=== PATIENT | female | born 1985 | race Asian ===

== ENCOUNTER 2023-10-21 08:17 | Outpatient (CLI) | payer BC, SELFPAY | END 2023-10-21 08:18 | disposition home or self-care (01) | PROVIDERS: Visit Provider Registered Nurse | DX: N92.0 Excessive and frequent menstruation with regular cycle (principal) | CPT/HCPCS: 82728; 84443 ==

== ENCOUNTER 2023-10-27 14:40 | Outpatient (CLI) | payer BC, SELFPAY ==
--- NOTE | 2023-10-27 14:45 | CRLHL7_ITS ---
For Patients: As a result of the Century Cures Act, medical imaging exams and procedure reports are released immediately into your electronic medical record. You may view this report before your referring provider. If you have questions, please contact your health care provider. INDICATION: Menorrhagia COMPARISON: none TECHNIQUE: 2D salcido scale and color Doppler images were acquired of the pelvis using a transabdominal and transvaginal approach. FINDINGS: Sonographic images demonstrate a normal size and smooth outer contour of the uterus. Uterus measures 8.0 cm in length by 4.8 cm in AP diameter by 5.5 cm in transverse dimension. The myometrium has a normal uniform echotexture. The endometrial lining measures 15 mm in composite thickness. The right ovary measures 3.3 x 1.9 x 2.7 cm in size and the left ovary measures 2.6 x 1.5 x 1.8 cm. The ovaries demonstrate normal arterial and venous blood flow on color Doppler analysis. There are no suspicious fluid collections within the cul-de-sac. Simple right ovarian cyst is present measuring 2.2 x 1.3 x 1.9 cm with partial collapse. Trace physiologic free fluid. IMPRESSION: Endometrial thickness 15 millimeters. No endometrial fluid or uterine fibroid. Dictated by Ronnie Vasquez MD @ 10/28/2023 11:44:12 AM (Electronically Signed)
== END 2023-10-27 14:41 | disposition home or self-care (01) ==
LOC: US 14:40
PROVIDERS: Visit Provider Registered Nurse
DX: N92.0 Excessive and frequent menstruation with regular cycle (principal); R93.89 Abnormal findings on diagnostic imaging of other specified body structures
CPT/HCPCS: 76830; 76856

== ENCOUNTER 2023-11-23 10:05 | Outpatient (CLI) | payer BC, SELFPAY | END 2023-11-23 10:06 | disposition home or self-care (01) | LOC: NFLDREF 11-27 02:15 | PROVIDERS: PCP Family Medicine; Referring Provider Family Medicine; Visit Provider Registered Nurse | DX: E61.1 Iron deficiency (principal) | CPT/HCPCS: 82728 ==

== ENCOUNTER 2024-05-29 09:29 | Outpatient (CLI) | payer OTHER, SELFPAY | END 2024-05-29 09:30 | disposition home or self-care (01) | LOC: NFLDREF 06-01 06:12 | PROVIDERS: PCP Family Medicine; Referring Provider Family Medicine; Visit Provider Nurse Practitioner | DX: N30.01 Acute cystitis with hematuria (principal) | CPT/HCPCS: 87086 ==

== ENCOUNTER 2024-06-10 13:16 | Outpatient (CLI) | payer OTHER, SELFPAY | END 2024-06-10 13:17 | disposition home or self-care (01) | LOC: NFLDREF 06-13 02:13 | PROVIDERS: PCP Family Medicine; Referring Provider Family Medicine; Visit Provider Physician Assistant | DX: R30.0 Dysuria (principal) | CPT/HCPCS: 87086 ==